=== PATIENT | female | born 1995 | race African-American/Black ===

== ENCOUNTER 2016-04-06 20:51 | Emergency (ER) | payer MEDICAID ==
[~2016-04-06] VITALS: Ht 162.6 cm; Wt 90.9 kg
[~2016-04-06 20:51] MED LIST: CYCL5TAB PO; EC-N500T7 PO
[2016-04-06 20:52] VITALS: BP 120/58; PULSE 91; RESP 16; TEMP 98.4; O2SAT 99
== END 2016-04-06 21:14 | disposition left against medical advice (07) ==
LOC: NED 20:51
DX: R10.9 Unspecified abdominal pain (principal)
CPT/HCPCS: 99281

== ENCOUNTER 2016-05-28 16:06 | Emergency (ER) | payer MEDICAID ==
[~2016-05-28] VITALS: Ht 162.6 cm; Wt 105.0 kg
[2016-05-28 16:07] VITALS: BP 139/95; PULSE 80; RESP 18; TEMP 98.1; O2SAT 99
--- NOTE | 2016-05-28 17:29 | PD ---
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 She states that her boyfriend cheated on her and she was told that another woman had gotten infection from him. She does report a white vaginal discharge since yesterday. She reports one sexual partner the past 6 months. She did not use protection. She is unsure she could be . Patient reports a history one miscarriage in the past. She denies abdominal pain. No fever. No nausea, vomiting, diarrhea. Patient denies any urinary symptoms. She has no chronic medical problems and takes no medications. Patient denies any previous surgeries. Her last menstrual period was May 08, 2016. [facility] Past Medical History Medical History: Denies Significant Hx Diminished Hearing: No Immunizations Current: Yes Tetanus Vaccination: < 5 Years ?: Unknown LMP: 05/09/2015 : 0 Past Surgical History Surgical History: No Previous Surgery Social History Alcohol Use: Yes (occasionally) Tobacco Use: Yes (occasional) Substance Use: No Allergies-Medications (Allergen,Severity, Reaction): Coded Allergies: No Known Allergies (Verified , 05/28/16) Reported Meds & Prescriptions Reported Meds & Active Scripts Active No Active Prescriptions or Reported Medications Review of Systems Except as stated in HPI: all other systems reviewed are Neg Physical Exam Narrative GENERAL: Well-nourished, well-developed female patient, ambulatory. Afebrile. SKIN: Focused skin assessment warm/dry. HEAD: Normocephalic. Atraumatic EYES: No scleral icterus. No injection or drainage. NECK: Supple, trachea midline. No JVD or lymphadenopathy. CARDIOVASCULAR: Regular rate and rhythm without murmurs, gallops, or rubs. RESPIRATORY: Breath sounds equal bilaterally. No accessory muscle use. Lungs sounds are clear to auscultation. GASTROINTESTINAL: Abdomen soft, non-tender, nondistended. No abdominal pain to palpation MUSCULOSKELETAL: No cyanosis, or edema. BACK: Nontender without obvious deformity. No CVA tenderness. GENITOURINARY: Normal external genitalia without lesions or erythema. Vaginal with white thick drainage noted. Cervical os was closed. No cervical motion tenderness. Uterus nontender and nonenlarged. Bilateral adnexa nontender without masses. Pelvic exam is done with RN at bedside. Data Data Last Documented VS Vital Signs Date Time Temp Pulse Resp B/P Pulse Ox O2 Delivery O2 Flow Rate FiO2 05/28/16 16:07 98.1 80 18 139/95 99 Orders Gc And Chlamydia Pcr (05/28/16 17:24) Wet Prep Profile (05/28/16 17:24) Urinalysis - C+S If Indicated (05/28/16 17:24) Ed Urine Pregnancytest Poc (05/28/16 17:24) Azithromycin Powd Pack (Zithromax Powd P (05/28/16 17:30) Ceftriaxone Inj (Rocephin Inj) (05/28/16 17:30) Lidocaine 1% Inj (50 Ml) (Xylocaine 1% I (05/28/16 17:30) Labs Laboratory Tests Test 05/28/16 18:00 Urine Color YELLOW Urine Turbidity CLOUDY Urine pH 6.0 Urine Specific [place] 1.030 Urine Protein TRACE mg/dL Urine Glucose (UA) NEG mg/dL Urine Ketones NEG mg/dL Urine Occult Blood NEG Urine Nitrite NEG Urine Bilirubin NEG Urine Urobilinogen LESS THAN 2.0 MG/DL Urine Leukocyte Esterase NEG Urine RBC 2 /hpf Urine WBC 2 /hpf Urine Amorphous Sediment MANY Urine Bacteria OCC /hpf Urine Mucus FEW /lpf Microscopic Urinalysis Comment CULT NOT INDICATED Clue Cells (Wet Prep) PRESENT Vaginal Trichomonas (Wet Prep) NONE SEEN Vaginal Yeast (Wet Prep) NONE SEEN MDM Medical Decision Making Medical Screen Exam Complete: Yes Emergency Medical Condition: Yes Medical Record Reviewed: Yes Differential Diagnosis Vaginitis versus UTI versus Narrative Course 20-year-old female presents to the emergency department for abnormal vaginal discharge for one day. UA and urine tests are ordered and pending. Pelvic exam will be performed. Swabs for chlamydia and gonorrhea as well as wet prep will be obtained. I discussed prophylactic treatment for chlamydia and gonorrhea and she would like to do this. UA shows no acute infection. Urine test is negative. Wet prep is positive for clue cells, negative for Trichomonas or yeast. Patient is given Rocephin 250 mg IM and azithromycin 1 g by mouth. The patient will be discharged with a prescription for Flagyl. She is instructed to follow with her cna instructor. She is return for any acute worsening of symptoms. Patient verbalizes agreement and understanding. The patient was discharged in stable condition with instructions, including return instructions and follow up instructions. Diagnosis Primary Impression: Vaginitis Qualified Code: N76.0 - Acute vaginitis Referrals: Web Methods Developer call for appointment Patient Instructions: Bacterial Vaginosis (ED), General Instructions, Vaginitis (ED) Additional Instructions: Take Flagyl as directed until gone. Do not drink alcohol while on this medication. Follow-up with a cna instructor or health department for further STD workup. Have all sexual partners tested and treated for STDs. No sex until both of URI treated in for 7 days after. Return to the emergency department for any acute worsening of symptoms. Med/Other Pt SpecificInfo: Prescription(s) given Scripts Metronidazole (Flagyl)500 Mg [id number] Mg PO BID 7 Days Ref 0 Prov:Alaina Jerez 05/28/16 Disposition: 01 DISCHARGE HOME Condition: Stable Alaina Jerez May 28, 2016 17:29
[2016-05-28] MEDS ORDERED: cefTRIAXone 250 MG VIAL IM ONE (17:30)
[2016-05-28] MEDS ORDERED: AZITHROMYCIN PWD FOR SUSP 1 GM PACKET PO ONE (17:30)
[2016-05-28] MEDS ORDERED: LIDOCAINE HCL 1% 50 ML VIAL IM ONE (17:30)
[2016-05-28 18:29] LABS: BACTERIA, URINE OCC /hpf; BLOOD, URINE NEG (NEG); COMMENT (UR) CULT NOT INDICATED; CULTURE IF INDICATED CULT NOT INDICATED; GLUCOSE,URINE NEG (NEG); KETONE, URINE NEG (NEG); MUCUS URINE FEW /lpf (OCC); NITRITE,URINE NEG (NEG); URINE COLOR YELLOW (YELLW/STRAW)
[2016-05-28] MEDS ORDERED: METR-1 PO (18:34)
[2016-05-28 23:57] LABS: CHLAMYDIA PCR NOT DETECTED (NOT DETECT); NEISSERIA PCR NOT DETECTED (NOT DETECT)
== END 2016-05-28 19:02 | disposition home or self-care (01) ==
LOC: NEPD 16:06
DX: N76.0 Acute vaginitis (principal)
CPT/HCPCS: 81001; 84703; 87210; 87491; 87591; 96372; 99283; J0696

== ENCOUNTER 2016-09-20 00:55 | Emergency (ER) | payer MEDICAID, OTHER ==
[~2016-09-20] VITALS: Ht 162.6 cm; Wt 127.1 kg
[~2016-09-20 00:55] MED LIST changes: -CYCL5TAB PO; -EC-N500T7 PO; +METR-1 PO
[2016-09-20 00:58] VITALS: BP 137/68; PULSE 97; RESP 16; TEMP 98.5; O2SAT 96
[2016-09-20 01:47] LABS: BLOOD, URINE NEG (NEG); COMMENT (UR) CULT NOT INDICATED; CULTURE IF INDICATED CULT NOT INDICATED; GLUCOSE,URINE NEG (NEG); KETONE, URINE TRACE mg/dL (NEG); MUCUS URINE FEW /lpf (OCC); NITRITE,URINE NEG (NEG); SQUAMOUS EPITHELIAL CELL URINE <1 /hpf (0-5); URINE COLOR YELLOW (YELLW/STRAW)
[2016-09-20] MEDS ORDERED: NAPROXEN 500 MG TAB PO ONE (02:00)
[2016-09-20] MEDS ORDERED: NAPR500 PO (02:01)
--- NOTE | 2016-09-20 02:01 | PD ---
HPI Chief Complaint: Abdominal Pain Time Seen by Provider: 01:13 Travel History International Travel<30 days: No Contact w/Intl Traveler<30days: No Traveled to known affect area: No History of Present Illness HPI The 20 year-old woman presents emergent arm for lower abdominal pain ongoing for couple days. She's not had any urinary symptoms. She has had a little bit of discharge. She's had some irregular bleeding. States her menstrual cycles are normally pretty irregular. Her last menstrual bleeding was September 04. She is sexually active with one male partner. He has no symptoms. She has no history of abdominal surgeries. No other complaints. History Past Medical History Medical History: Denies Significant Hx Tetanus Vaccination: Unknown Influenza Vaccination: No LMP: 09/07/16 : 0 Past Surgical History Surgical History: No Previous Surgery Social History Alcohol Use: Yes (occasionally) Tobacco Use: No Allergies-Medications (Allergen,Severity, Reaction): Coded Allergies: No Known Allergies (Verified , 05/28/16) Reported Meds & Prescriptions Reported Meds & Active Scripts Active Naprosyn (Naproxen) 500 Mg Tab 500 Mg PO BID PRN Review of Systems Except as stated in HPI: all other systems reviewed are Neg Physical Exam Narrative GENERAL: Well-appearing 20 year-old woman, no acute distress. CARDIOVASCULAR: Regular rate and rhythm. No murmur appreciated. RESPIRATORY: No accessory muscle use. Clear to auscultation. Breath sounds equal bilaterally. GASTROINTESTINAL: Abdomen soft, non-tender, nondistended. Hepatic and splenic margins not palpable. MUSCULOSKELETAL: No obvious deformities. No clubbing. No cyanosis. No edema. NEUROLOGICAL: Awake and alert. No obvious cranial nerve deficits. Motor grossly within normal limits. Normal speech. GENITOURINARY: Normal external genitalia without lesions or erythema. Vaginal vault without blood or drainage. Cervical os was closed without drainage. Mild cervical motion tenderness. Palpable fullness in the left adnexa. She has some mild right adnexal tenderness. Data Data Last Documented VS Vital Signs Date Time Temp Pulse Resp B/P Pulse Ox O2 Delivery O2 Flow Rate FiO2 09/20/16 01:09 16 09/20/16 00:58 98.5 97 137/68 96 Room Air Orders Urinalysis - C+S If Indicated (09/20/16 01:04) Ed Urine Pregnancytest Poc (09/20/16 01:04) Gc And Chlamydia Pcr (09/20/16 01:37) Wet Prep Profile (09/20/16 01:37) Naproxen (Naprosyn) (09/20/16 02:00) Labs Laboratory Tests Test 09/20/16 09/20/16 01:20 01:45 Urine Color YELLOW Urine Turbidity CLEAR Urine pH 6.0 Urine Specific [place] 1.039 Urine Protein TRACE mg/dL Urine Glucose (UA) NEG mg/dL Urine Ketones TRACE mg/dL Urine Occult Blood NEG Urine Nitrite NEG Urine Bilirubin NEG Urine Urobilinogen 2.0 MG/DL Urine Leukocyte Esterase NEG Urine RBC LESS THAN 1 /hpf Urine WBC LESS THAN 1 /hpf Urine Squamous Epithelial <1 /hpf Cells Urine Mucus FEW /lpf Microscopic Urinalysis Comment CULT NOT INDICATED Clue Cells (Wet Prep) NONE SEEN Vaginal Trichomonas (Wet Prep) NONE SEEN Vaginal Yeast (Wet Prep) NONE SEEN MDM Medical Decision Making Medical Screen Exam Complete: Yes Emergency Medical Condition: Yes Interpretation(s) UA unremarkable Point of care hCG is negative Wet preps negative Differential Diagnosis Dysmenorrhea, endometriosis, ovarian cyst, appendicitis, , other Narrative Course Medical decision making 20 year-old woman presents emergent part some lower abdominal pain ongoing for past couple days. She is a little bit tenderness in the right lower quadrant. I don't think she has appendicitis. She's never any other associated symptoms with it such as that. The time course really doesn't suggest that. She looks overall well. She has some palpable fullness in her left adnexa that could be an ovarian cyst. She has had irregular bleeding at baseline but could suggest endometriosis. In any case her urinalysis is unremarkable. Recommend supportive treatment and outpatient follow-up. Diagnosis Primary Impression: Abdominal pain Additional Instructions: Take Naprosyn as needed for abdominal pain. Return to the emergency department for any worsening abdominal pain, fevers or chills, nausea or vomiting, or any other new or worsening symptoms. Follow-up with her primary doctor in 2-4 days if you're not feeling completely well. Med/Other Pt SpecificInfo: No Change to Meds Scripts Naproxen (Naprosyn)500 Mg [id number] Mg PO BID PRN (PAIN SCALE 1 TO 10) #20 TAB Prov:Jeremy Glover MD 09/20/16 Disposition: 01 DISCHARGE HOME Condition: Stable AdalbertoJeremy C. MD Sep 20, 2016 02:01
[2016-09-20 04:19] LABS: CHLAMYDIA PCR NOT DETECTED (NOT DETECT); NEISSERIA PCR DETECTED (NOT DETECT)
== END 2016-09-20 02:58 | disposition home or self-care (01) ==
LOC: NEPC 00:55
DX: R10.30 Lower abdominal pain, unspecified (principal)
CPT/HCPCS: 81001; 84703; 87210; 87491; 87591; 99283

== ENCOUNTER 2017-04-05 10:37 | Emergency (ER) | payer OTHER ==
[~2017-04-05] VITALS: Ht 162.6 cm; Wt 130.0 kg
[~2017-04-05 10:37] MED LIST changes: -METR-1 PO; +NAPR500 PO
[2017-04-05 10:39] VITALS: BP 120/64; PULSE 74; RESP 14; TEMP 98.4; O2SAT 100
== END 2017-04-05 12:37 | disposition left against medical advice (07) ==
LOC: NETRI 10:37
DX: R07.9 Chest pain, unspecified (principal)
CPT/HCPCS: 99281

== ENCOUNTER 2017-06-29 | Emergency (ER) | payer OTHER ==
[~2017-06-29] VITALS: Ht 162.6 cm; Wt 120.0 kg
[2017-06-29 00:02] VITALS: BP 121/73; PULSE 102; RESP 18; TEMP 98.1; O2SAT 99
--- NOTE | 2017-06-29 01:25 | PD ---
HPI Chief Complaint: ENT Complaint Time Seen by Provider: 01:20 Travel History International Travel<30 days: No Contact w/Intl Traveler<30days: No Traveled to known affect area: No History of Present Illness HPI The patient is a 21 year old female who presents to the [facility] emergency department with a history of right ear pain that began on Wednesday. She reports that the pain began when she scratched in her ear. She reports that since then she has had drainage from the right ear canal and increased pain. She reports that she has been swimming regularly recently. She denies having any cough, congestion, rhinorrhea. She denies having any bloody drainage from the ear. She reports that the drainage is clear to yellow in color. She denies having any recent fevers. On review of systems otherwise, she denies having any neck pain, chest pain, shortness of breath, abdominal pain , vomiting, diarrhea, urinary symptoms, or neurologic symptoms. LMP: June 07, 2017 [facility] Past Medical History Narrative Medical The patient's past medical history is reportedly none. Medical History: Denies Significant Hx Diminished Hearing: No Immunizations Current: Yes ?: Unknown : 0 Past Surgical History Surgical History: No Previous Surgery Social History Alcohol Use: No Tobacco Use: No Substance Use: No Allergies-Medications (Allergen,Severity, Reaction): Coded Allergies: No Known Allergies (Verified Adverse Reaction, Unknown, 06/29/17) Reported Meds & Prescriptions Reported Meds & Active Scripts Active No Active Prescriptions or Reported Medications Review of Systems Except as stated in HPI: all other systems reviewed are Neg General / Constitutional: No: Fever Eyes: No: Visual changes HENT: Positive: Ear Discharge, Earache, No: Headaches Cardiovascular: No: Chest Pain or Discomfort Respiratory: No: Shortness of Breath Gastrointestinal: No: Abdominal Pain Genitourinary: No: Dysuria Musculoskeletal: No: Pain Skin: No Rash Neurologic: No: Weakness, Focal Abnormalities, Change in Mentation, Slurred Speech, Sensory Disturbance Psychiatric: No: Depression Endocrine: No: Polydipsia Hematologic/Lymphatic: No: Easy Bruising Physical Exam Narrative General: The patient is a well-developed well-nourished female in no acute distress. Head and Neck exam: Head is normocephalic atraumatic. Ears: The patient's left tympanic membrane is pearly with good cone of light, no erythema or exudate. The patient's right ear is tender to palpation over the tragus with swelling of the external auditory canal and erythema noted, a clear drainage is noted. The patient's tympanic membrane is able to be visualized and pearly with a good cone of light, no erythema or exudate. Eyes: Extraocular motion is intact, pupils are equal round and reactive to light. Nose: Midline septum with pink mucous membranes Mouth: Dentition unremarkable. Moist mucus membranes. Posterior oropharynx is not erythematous. No tonsillar hypertrophy. Uvula midline. Airway patent. Neck: No palpable lymphadenopathy. No nuchal rigidity. No thyromegaly. Cardiovascular: Regular rate and rhythm without murmurs, gallops, or rubs. Lungs: Clear to auscultation bilaterally. No wheezes, rhonchi, or rales. Abdomen: Soft, without tenderness to palpation in all 4 quadrants of the abdomen. No guarding, rebound, or rigidity. Normal bowel sounds are audible. Extremities: No clubbing, cyanosis, or edema. 2+ pulses in all 4 extremities. No calf tenderness on palpation. Back: No costovertebral angle tenderness to palpation. Neurologic Exam: Grossly nonfocal. Skin Exam: No rash noted. Intact skin that is warm and dry. Data Data Last Documented VS Vital Signs Date Time Temp Pulse Resp B/P (MAP) Pulse Ox O2 Delivery O2 Flow Rate FiO2 06/29/17 00:02 98.1 102 18 121/73 (89) 99 MDM Medical Decision Making Medical Screen Exam Complete: Yes Emergency Medical Condition: Yes Medical Record Reviewed: Yes Differential Diagnosis Otitis media, versus otitis externa, versus TMJ, versus perforated eardrum Narrative Course During the course of the patient's emergency department visit, the patient's history, examination, and differential diagnosis were reviewed with the patient. The patient's examination findings are consistent with an otitis externa. The patient was instructed to avoid swimming. She was instructed to keep her ear dry even when showering. She was instructed to use a shower Or an ear plug to keep her ear dry. The patient will be discharged home with a prescription for Cortisporin Otic. The patient is resting comfortably and feels better, is alert and in no distress. The patient's examination findings were discussed with the patient. The repeat examination is unremarkable and benign. The history, exam, diagnostic testing, and current condition do not suggest any significant pathology to warrant further testing, continued ED treatment, admission, or surgical evaluation at this point. The vital signs have been stable. The patient does not have uncontrollable pain, intractable vomiting, or other significant symptoms. The patient's condition is stable and appropriate for discharge. The patient will pursue further outpatient evaluation with a primary care physician or other designated or consulting physician as indicated in the discharge instructions. The patient expressed understanding and was agreeable with this plan. Diagnosis Primary Impression: Otitis externa Qualified Codes: H60.331 - Swimmer's ear, right ear Referrals: [facility] 1 week Patient Instructions: General Instructions, Otitis Externa (ED) Additional Instructions: The patient was instructed that if she develops any new or worsening signs or symptoms, she should report back immediately to the emergency department. The patient was instructed to avoid swimming. She was instructed to keep her ear dry even when showering. She was instructed to use a shower Or an ear plug to keep her ear dry. The patient will be discharged home with a prescription for Cortisporin Otic. Med/Other Pt SpecificInfo: Prescription(s) given Scripts Ofloxacin Otic (Floxin Otic) 0.3 % Karli 10 DROP RIGHT EAR DAILY for Infection for 7 Days, #1 BOTTLE 0 Refills Prov: Cheryle Ortega MD 06/29/17 Disposition: 01 DISCHARGE HOME Condition: Stable Cheryle Ortega MD June 29, 2017 01:25
[2017-06-29] MEDS ORDERED: OFLO1SOL RIGHT EAR (02:38)
== END 2017-06-29 02:48 | disposition home or self-care (01) ==
LOC: NEPE
DX: H60.331 Swimmer's ear, right ear (principal)
CPT/HCPCS: 99283